=== PATIENT | female | born 1945 | race Caucasian/White ===

== ENCOUNTER → 2023-05-29 15:31 | Outpatient (REF) | payer MEDICARE, OTHER, SELFPAY | LOC: RAD 15:31 | PROVIDERS: ATTENDING PHYSICIAN Surgery Vascular Surgery; FAMILY PHYSICIAN Family Medicine | DX: I71.42 Juxtarenal abdominal aortic aneurysm, without rupture (principal); T82.310A Breakdown (mechanical) of aortic (bifurcation) graft (replacement), initial encounter | CPT/HCPCS: 74174; Q9967 ==

== ENCOUNTER → 2024-02-05 07:55 | Outpatient (REF) | payer MEDICARE, OTHER, SELFPAY | LOC: HWRAD 07:55 | PROVIDERS: ATTENDING PHYSICIAN Surgery; FAMILY PHYSICIAN Family Medicine | DX: Z12.11 Encounter for screening for malignant neoplasm of colon (principal) | CPT/HCPCS: 74261 ==